=== PATIENT | male | born 1965 ===

== ENCOUNTER 2017-03-23 16:24 | Day surgery (SDC) | payer OTHER ==
[~2017-03-23 16:24] MED LIST: CEPHALEXIN 500 MG CAP PO SCH; HYDROCODONE/APAP 5/325 TAB PO SCH
[2017-03-23] MEDS ORDERED: TDAP ADULT 0.5 ML INJ (BOOSTRIX) IM ONE (16:36)
--- NOTE | 2017-03-23 16:45 | EDPHY ---
H & P Stated Complaint: Multiple finger lacerations Time Seen by Provider: 03/23/17 16:31 HPI/ROS: CHIEF COMPLAINT: Left ring finger laceration with tendon injury HISTORY OF PRESENT ILLNESS: The patient presents the emergency department with a left ring finger laceration after he slipped and fell onto a 1 bottle. The patient denies any associated numbness. The patient has an obvious exposed tendon injury. The patient reports that his tetanus is not up-to-date. The patient denies additional acute complaints. The patient has no significant past medical history. REVIEW OF SYSTEMS: A comprehensive 10 point review of systems is otherwise negative aside from elements mentioned in the history of present illness. Source: Patient Exam Limitations: No limitations - Personal History Current Tetanus/Diphtheria Vaccine: Yes Current Tetanus Diphtheria and Acellular Pertussis (TDAP): Yes - Medical/Surgical History Hx Asthma: No Hx Chronic Respiratory Disease: No Hx Diabetes: No Hx Cardiac Disease: No Hx Renal Disease: No Hx Cirrhosis: No Hx Alcoholism: No Hx HIV/AIDS: No Hx Splenectomy or Spleen Trauma: No Other PMH: none per pt - Social History Smoking Status: Never smoked - Physical Exam Exam: General: No acute distress Left hand: Examination of the left hand demonstrates a complicated laceration between the left 4th MCP and PIP joints. There is a obvious exposed tendon out of the sheath. The patient is noted to have deficits of his FDS and FDP tendons. The patient is noted to have intact sensation to light touch. Vascular: Normal capillary Skin: Superficial nonsuturable lacerations are noted to the right hand and elsewhere on the left hand. Constitutional: Initial Vital Signs Temperature (C) 36.6 C 03/23/17 16:31 Heart Rate 55 L 03/23/17 16:31 Respiratory Rate 16 03/23/17 16:31 Blood Pressure 146/94 H 03/23/17 16:31 O2 Sat (%) 96 03/23/17 16:31 O2 Delivery Mode Room Air Allergies/Adverse Reactions: No Known Allergies Allergy (Unverified 03/23/17 16:30) Home Medications: Medication Instructions Recorded NK [No Known Home Meds] 03/23/17 Medical Decision Making - Diagnostics Imaging Results: Imaging Impressions Hand X-Ray 03/23/17 16:44 Impression: Negative. No fracture or foreign body. ED Course/Re-evaluation: The patient had an IV established. He received 1 g of IV Ancef. Consultation was made with Dr. Sean Leyva who is on-call for Hand surgery. He evaluated the patient in the emergency department. The patient will be taken to the OR for operative repair of his tendon injury and laceration this evening. Differential Diagnosis: Differential diagnosis considered includes laceration, tendon injury, vascular injury, nerve injury, open fracture - Data Points Medications Given: Discontinued Medications Diphtheria/Tetanus/Acell Pertussis (Boostrix) 0.5 ml IM .ONCE ONE Stop: 03/23/17 16:37 Last Admin: 03/23/17 16:41 Dose: 0.5 ml Departure - Departure Disposition: To OP Cath/Surgery Clinical Impression: Laceration of left hand Qualifiers: Encounter type: initial encounter Foreign body presence: without foreign body Qualified Code(s): S61.412A - Laceration without foreign body of left hand, initial encounter Flexor tendon laceration of hand with open wound Qualifiers: Encounter type: initial encounter Laterality: left Qualified Code(s): S66.822A - Laceration of other specified muscles, fascia and tendons at wrist and hand level, left hand, initial encounter; S61.409A - Unspecified open wound of unspecified hand, initial encounter Condition: Good Referrals: Olayinka Purcell MD [Primary Care Provider] - As per Instructions
[2017-03-23] MEDS ORDERED: fentaNYL 100 MCG/2 ML INJ ONE ×2 (17:33→18:32)
[2017-03-23] MEDS ORDERED: PROPOFOL/EMULSION 500 MG/50 ML BOTTLE IV ONE (17:35)
[2017-03-23] MEDS ORDERED: MIDAZOLAM 2 MG/2 ML VIAL ONE ×2 (17:36→18:28)
[2017-03-23] MEDS ORDERED: CITRIC ACID/SODIUM CITRATE 30 ML UDCUP PO ONE (17:48)
[2017-03-23] MEDS ORDERED: BUPIVACAINE 0.25% 30 ML SDV ONE (17:58)
[2017-03-23] MEDS ORDERED: ALBUTEROL 3 ML DEYVIAL IH PRN (18:06)
[2017-03-23] MEDS ORDERED: PROMETHAZINE HCL 25 MG/ML INJ IVP PRN (18:06)
[2017-03-23] MEDS ORDERED: HYDROCODONE/APAP 5/325 TAB PO PRN (18:06)
[2017-03-23] MEDS ORDERED: ONDANSETRON 4 MG/2 ML VIAL IVP PRN (18:06)
[2017-03-23] MEDS ORDERED: HYDROmorphONE/DILAUDID 1 MG/ML INJ IVP PRN (18:06)
[2017-03-23] MEDS ORDERED: fentaNYL 100 MCG/2 ML INJ IVP PRN (18:06)
[2017-03-23] MEDS ORDERED: [UNRECOGNIZED DRUG - OTHER] IV PRN (18:06)
[2017-03-23] MEDS ORDERED: OXYCODONE/APAP 5/325 TAB PO PRN (18:06)
[2017-03-23] MEDS ORDERED: MEPERIDINE 25 MG/ML SYR IVP PRN (18:06)
[2017-03-23] MEDS ORDERED: NALOXONE HCL 0.4 MG/ML INJ IVP PRN (18:06)
[2017-03-23] MEDS ORDERED: PROPOFOL 200 MG/20 ML VIAL ONE (18:31)
--- NOTE | 2017-03-23 18:52 | PDANEPAE ---
ANE Past Medical History - Cardiovascular History Hx Hypertension: No Hx Arrhythmias: No Hx Chest Pain: No Hx Coronary Artery / Peripheral Vascular Disease: No Hx CHF / Valvular Disease: No Hx Palpitations: No - Pulmonary History Hx COPD: No Hx Asthma/Reactive Airway Disease: No Hx Recent Upper Respiratory Infection: No Hx Oxygen in Use at Home: No Hx Sleep Apnea: No - Endocrine History Hx Diabetes: No Hypothyroid: No Hyperthyroid: No Obesity: no - Renal History Hx Renal Disorders: No ANE Review of Systems Review of Systems: - Exercise capacity Exercise capacity: >=4 METS ANE Patient History - Allergies Allergies/Adverse Reactions: No Known Allergies Allergy (Unverified 03/23/17 16:30) - Home Medications Home Medications: NK [No Known Home Meds] 03/23/17 [Last Taken Unknown] - NPO status NPO Since - Liquids (Date): 03/23/17 NPO Since - Liquids (Time): 13:00 NPO Since - Solids (Date): 03/23/17 NPO Since - Solids (Time): 13:00 - Smoking Hx Smoking Status: Never smoked ANE Labs/Vital Signs - Vital Signs Blood Pressure: 128/82 Heart Rate: 55 Respiratory Rate: 16 O2 Sat (%): 98 Height: 182.88 cm Weight: 70.307 kg ANE Physical Exam - Pulmonary Pulmonary: no respiratory distress, clear to auscultation - Cardiovascular Cardiovascular: regular rate and rhythym - ASA Status ASA Status: I, E
[2017-03-23] MEDS ORDERED: DEXAMETHASONE 4 MG/ML VIAL ONE ×2 (18:53)
[2017-03-23] MEDS ORDERED: METOCLOPRAMIDE 10 MG/2 ML VIAL ONE (18:54)
[2017-03-23] MEDS ORDERED: RANITIDINE 50 MG/2 ML VIAL ONE (18:54)
[2017-03-23] MEDS ORDERED: ONDANSETRON 4 MG/2 ML VIAL ONE ×2 (18:54)
[2017-03-23] MEDS ORDERED: ROCURONIUM 50 MG/5 ML VIAL ONE (18:55)
[2017-03-23] MEDS ORDERED: SUCCINYLCHOLINE CHLORIDE*ANESTHESIA ONLY*200 MG/10 ML SYR IVP ONE (18:55)
--- NOTE | 2017-03-23 19:44 | POSTANESTH ---
Post Anesthetic Evaluation Respiratory Status: Normal, Stable Level of Consciousness/Mental Status: Mildly Sleepy, Arousable, Moderately Sleepy Pain Control: Adequate, Prn Tx Ordered Nausea/Vomiting Control: Adequate, Prn Tx Ordered Complications Possibly Related to Anesthesia: None Noted
[2017-03-23] MEDS ORDERED: CEPACOL LOZENGE PO ONE (19:58)
[2017-03-23] MEDS ORDERED: CEPACOL LOZENGE PO PRN (19:58)
[2017-03-23 20:22] VITALS: TEMP 98.2
[2017-03-23 20:41] VITALS: BP 137/87; PULSE 65; RESP 16; O2SAT 95
--- NOTE | 2017-03-25 09:43 | GOP ---
[f rep st] OPERATIVE REPORT DATE OF OPERATION: 03/23/2017 SURGEON: Rolf Leyva MD LOAD MIXER: None. ANESTHESIA: General. PREOPERATIVE DIAGNOSIS: Left hand laceration with associated tendon injury of ring finger. POSTOPERATIVE DIAGNOSIS: Laceration of flexor digitorum profundus tendon of left right finger and la ceration of superficialis tendon of left ring finger. PROCEDURE PERFORMED: Repair of profundus and superficialis tendons, left ring finger with exploratio n of digital nerves. FINDINGS: SPECIMENS: None. ESTIMATED BLOOD LOSS: At finish of procedure, 5 cc. 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 He has exposed an obvious injury to the flexor tendon with no evidence of injury to the digital nerves. I discussed with him the risks, benefits, and alternatives of surgical repair. The risks of the procedure include infection, neurovascular injury, scarring of the tendon which would prevent no rmal function or necessitate future operations, and failure of tendon repair which would also necessi rowe future operations. He understands these and wishes to proceed. Proper informed consent was obt ained and placed in the chart. DESCRIPTION OF PROCEDURE: The patient was taken to the operating room after being properly identifie d in the preoperative area and the operative extremity marked. He received preoperative IV Ancef and a time-out was performed. After induction of general anesthesia, the left upper extremity was prepp ed and draped in a sterile fashion. The limb was exsanguinated using an Esmarch bandage and the tour niquet was inflated to 250 mmHg. Thorough irrigation was carried out with the wound, and the lacerations on the volar surface of the r ing finger were extended proximally and distally and converted into Haseeb incisions. With the finge r in a fully extended position, the level of the tendon injury was at the junction of the 2nd and 3rd pulleys, so a bit of the proximal portion of the A2 kiesha was vented and a bit of the distal portio n of the A3 kiesha was released in order to allow us to work. The tendons were not retracted very fa r, so they were easy to extract from beneath the A2 kiesha, and we performed the technique of skeweri ng the tendons with a 25-gauge needle so that they could be minimally handled during repair. I repaired the superficialis tendon using a 4-0 single braided FiberWire suture, and a nice repair wa s achieved. Then, I repaired the profundus tendon using a core cruciate locking stitch with a 4-0 Newton pramid looped suture so that this would be an 8-strand nice repair. This was finished with a running epitendinous 6-0 Prolene locking suture. I was very pleased with the tendon repair overall. I vent ed just a bit more of the kiesha so that the tendon would not be stuck with deep flexion, and I was s ure to check and make sure that there was no bow stringing of the tendon. I was quite satisfied with that. The wounds were thoroughly irrigated once again. The digital nerves were both checked on eit her side and they were intact. We let the tourniquet down and the finger was warm and pink. Hemosta sis was achieved using bipolar cautery and interrupted sutures were placed in the skin using 4-0 Prol liya suture. A bulky soft dressing and a dorsal blocking splint were placed. Total tourniquet time w as about 45 minutes. The patient was awakened and taken to recovery, having tolerated the procedure well, without any appa rent complication. All sponge and needle counts were correct at the finish of the operation. PLAN: The patient will go to the hand therapist in the next 48-72 hours for configuration of a dorsa l blocking splint and initiation of early passive motion only. The patient will go to rehab a few ti mes a week formally. He will see me on Friday just for a quick check. He will be given Keflex and [facility] [place] [facility]. /[id number]/MODL
--- NOTE | 2017-03-28 12:25 | GHP ---
[f rep st] HISTORY AND PHYSICAL DATE OF ADMISSION: 03/23/2017 HISTORY AND PHYSICAL AND CONSULTATION: CHIEF COMPLAINT: Left ring finger laceration. 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 PAST MEDICAL HISTORY: Includes no active medical problems, and he is up-to-date on his tetanus. SOCIAL HISTORY: He is not a smoker. REVIEW OF SYSTEMS: Isolated findings to the left ring finger laceration. PHYSICAL EXAMINATION: GENERAL APPEARANCE: Patient is alert and oriented and appropriately interacti ve. EXTREMITIES: His exam findings are isolated to the left ring finger, where he has a laceration on th e palmar surface between the PIP and MP joint crease. He has no active motion, with exposed flexor t endon, and clear evidence of complete laceration of both the flexor digitorum profundus and superfici alex tendons. He has intact digital nerve sensation in the radial and ulnar digital nerve distributi ons, and he has good vascularity of the fingertip, with warm and pink fingertip and normal capillary refill. SKIN: Exam is as per the laceration described above. VITAL SIGNS: Normal, with slightly high blood pressure of 146/94. ALLERGIES: There are no known drug allergies. MEDICATIONS: None. I spoke with the ED physician and examined the patient. The patient has an obvious acute flexor tend on injury and a unique situation that the tendon is exposed with a skin flap outside of the skin flap , and so the tendon cannot simply be tucked in and temporized for later repair, so I have just recomm ended that we take him to the operating room on 03/23, and do an acute repair, and I discussed with twan loco the complexity of flexor tendon injury, the necessity for prolonged immobilization and hand rehabi litation, the possibly of rerupture of the tendon, or the possibly the tendon would get stuck or adhe rent, which would lead to less than full range of motion and function, and potential necessity for fu ture operations. He understands this and wishes to proceed, and we are taking him to the operating r oom on 03/23. /[id number]/MODL
== END 2017-03-23 20:41 | disposition home or self-care (01) ==
LOC: FSGY 17:46
PROVIDERS: ATTEND Orthopaedic Surgery Hand Surgery
PROC: 0LQ80ZZ Repair Left Hand Tendon, Open Approach (ICD-10-PCS; principal; 2017-03-23 18:00)
DX: S66.822A Laceration of other specified muscles, fascia and tendons at wrist and hand level, left hand, initial encounter (principal); W01.110A Fall on same level from slipping, tripping and stumbling with subsequent striking against sharp glass, initial encounter
CPT/HCPCS: J0330; J0690; J1100; J2250; J2405; J2704; J2765; J2780; J3010

== ENCOUNTER → 2017-12-22 | Outpatient (CLI) | payer OTHER | LOC: FIMAGING 10:29 | PROVIDERS: ATTEND Internal Medicine | DX: M79.672 Pain in left foot (principal) ==

== ENCOUNTER → 2018-07-08 | Outpatient (CLI) | payer OTHER | LOC: BMCIMAGING 16:26 | PROVIDERS: ATTEND Internal Medicine | DX: R05 Cough (principal) ==